=== PATIENT | female | born 1985 | race African-American/Black ===

== ENCOUNTER 2017-05-30 06:14 | Emergency (ER) | payer SELFPAY ==
[2017-05-30] MEDS ORDERED: methylPREDNISolone Sod Succ/PF 125 MG/2 ML VIAL ONE (06:41)
[2017-05-30 07:14] LABS: Hematocrit 42.1 % (36.0-47.0); Mean Platelet Volume 8.8 fL (7.4-10.4); White Blood Cell (WBC) Count 5.4 thou/uL (4.8-10.8)
[2017-05-30 07:32] LABS: ALT (SGPT) 16 U/L (8-55); AST (SGOT) 21 U/L (5-34); Alkaline Phosphatase 81 U/L (40-150); Anion Gap 9 mmol/L (10-20); BUN (Urea Nitrogen) 9 mg/dL (7.0-18.7); Bilirubin, Total 0.2 mg/dL (0.2-1.2); Calc. Creatinine Clearance 0 mL/min (70-130); Calcium 8.4 mg/dL (7.8-10.44); Carbon Dioxide 24 mmol/L (22-29); Chloride 108 mmol/L (98-107); Estimated GFR-MDRD 78; Globulin 2.8 g/dL (2.4-3.5); Protein, Total 6.3 g/dL (6.0-8.3)
[2017-05-30 07:46] LABS: Band 3 % (5-11); Neutrophil 20 % (42-75); Reactive Lymphocytes 5 % (0-10)
--- NOTE | 2017-05-30 08:26 | RAD ---
UPRIGHT PORTABLE CHEST ONE VIEW: HISTORY: A 31-year-old female with dyspnea which began yesterday. Prior history of asthma. FINDINGS: Monitor leads overlie the chest. Heart size is within normal limits. The lungs are clear. IMPRESSION: No acute intrathoracic disease. POS: [facility]
[2017-05-30 08:55] LABS: Bilirubin Negative (Negative); Blood, Urine Negative (Negative); Glucose, Urine (Dipstick) Negative (Negative); Ketone, Urine Negative (Negative); Nitrite Negative (Negative); Protein, Urine (Dipstick) Negative (Neg-Trace); Urobilinogen 0.2 mg/dL (0.2-1.0)
--- NOTE | 2017-06-03 15:20 | EKG ---
Test Reason : ASTHMA Blood Pressure : / mmHG Vent. Rate : 073 BPM Atrial Rate : 073 BPM P-R Int : 154 ms QRS Dur : 078 ms QT Int : 392 ms P-R-T Axes : 039 008 004 degrees QTc Int : 431 ms Normal sinus rhythm No STEMI Normal ECG Confirmed by ROCIO MALLOY M.D. ([id number]), photography editor MARIBELL JARA ([id number] on 06/03/2017 3:19:47 PM Referred By: Confirmed By:ROCIO MALLOY M.D.
== END 2017-05-30 08:55 | disposition home or self-care (01) ==
LOC: ERS 06:14
DX: J04.0 Acute laryngitis (principal); E66.9 Obesity, unspecified; F31.9 Bipolar disorder, unspecified; F17.210 Nicotine dependence, cigarettes, uncomplicated
CPT/HCPCS: 71010; 80053; 81003; 85025; 93005; 94640; 94760; 96361; 96374; J2930; J7620

== ENCOUNTER 2017-06-25 23:18 | Emergency (ER) | payer SELFPAY ==
[2017-06-26] MEDS ORDERED: Dexamethasone 4 mg/ml Vial ONE (00:50)
== END 2017-06-26 00:59 | disposition home or self-care (01) ==
LOC: ERS 23:18
DX: B34.9 Viral infection, unspecified (principal); J44.9 Chronic obstructive pulmonary disease, unspecified; F31.9 Bipolar disorder, unspecified; E66.9 Obesity, unspecified; F17.210 Nicotine dependence, cigarettes, uncomplicated
CPT/HCPCS: 87081; 87430; 99283; J1100

== ENCOUNTER 2017-07-19 13:59 | Emergency (ER) | payer SELFPAY ==
[2017-07-19 15:08] LABS: Bilirubin Negative (Negative); Blood, Urine Negative (Negative); Glucose, Urine (Dipstick) Negative (Negative); Ketone, Urine Negative (Negative); Nitrite Negative (Negative); Protein, Urine (Dipstick) Negative (Neg-Trace); Urobilinogen 0.2 mg/dL (0.2-1.0)
[2017-07-19 15:15] LABS: Bacteria/HPF Rare-Few HPF (None Seen); Hyaline Casts/LPF 4-6 HYALINE CAST LPF (0-3 Hyaline); RBC/HPF 0-3 HPF (0-3); WBC/HPF 21-50 HPF (0-3)
[2017-07-19 15:26] LABS: Yeast-All Forms None Seen HPF (None Seen)
[2017-07-19 15:39] LABS: #Eosinphils 0.1 thou/uL (0.0-0.7); #Lymphocytes 1.4 thou/uL (1.20-3.40); #Monocytes 0.4 thou/uL (0.11-0.59); #Neutrophils 3.8 thou/uL (1.40-6.50); %Basophils 0.7 % (0.0-1.0); %Eosinophils 2.5 % (0.0-10.0); %Lymphocytes 24.7 % (21.0-51.0); %Monocytes 6.4 % (0.0-10.0); Hematocrit 43.2 % (36.0-47.0); Mean Platelet Volume 9.3 fL (7.4-10.4); Red Blood Cell (RBC) Count 4.63 mill/uL (4.20-5.40); White Blood Cell (WBC) Count 5.8 thou/uL (4.8-10.8)
[2017-07-19 16:01] LABS: ALT (SGPT) 12 U/L (8-55); AST (SGOT) 21 U/L (5-34); Alkaline Phosphatase 102 U/L (40-150); Anion Gap 12 mmol/L (10-20); BUN (Urea Nitrogen) 7 mg/dL (7.0-18.7); Bilirubin, Total 0.5 mg/dL (0.2-1.2); Calc. Creatinine Clearance 0 mL/min (70-130); Calcium 9.4 mg/dL (7.8-10.44); Carbon Dioxide 21 mmol/L (22-29); Chloride 105 mmol/L (98-107); Estimated GFR-MDRD Greater than 90; Globulin 3.3 g/dL (2.4-3.5)
[2017-07-19] MEDS ORDERED: Ondansetron HCl/PF 4 MG/2 ML Vial ONE (17:56)
== END 2017-07-19 19:17 | disposition home or self-care (01) ==
LOC: ERS 13:59
DX: K52.9 Noninfective gastroenteritis and colitis, unspecified (principal); J45.909 Unspecified asthma, uncomplicated; F31.9 Bipolar disorder, unspecified; F17.210 Nicotine dependence, cigarettes, uncomplicated; E66.9 Obesity, unspecified
CPT/HCPCS: 36415; 80053; 81003; 81015; 81025; 85025; 87086; 96361; 96374; 99406; J2405

== ENCOUNTER 2017-09-07 14:18 | Emergency (ER) | payer SELFPAY ==
[2017-09-07] MEDS ORDERED: Dexamethasone 10 MG/ML VIAL ONE (15:24)
== END 2017-09-07 15:55 | disposition home or self-care (01) ==
LOC: ERS 14:18
DX: J04.0 Acute laryngitis (principal); J45.909 Unspecified asthma, uncomplicated; E66.9 Obesity, unspecified; F31.9 Bipolar disorder, unspecified; Z71.6 Tobacco abuse counseling; F17.210 Nicotine dependence, cigarettes, uncomplicated; F41.9 Anxiety disorder, unspecified; Z79.899 Other long term (current) drug therapy
CPT/HCPCS: 87081; 87430; 96372; 99406; J1100

== ENCOUNTER 2017-10-01 20:53 | Emergency (ER) | payer SELFPAY ==
[2017-10-01] MEDS ORDERED: Ibuprofen 800 MG TAB ONE (22:14)
== END 2017-10-01 22:15 | disposition home or self-care (01) ==
LOC: ERS 20:53
DX: J45.909 Unspecified asthma, uncomplicated (principal); E66.9 Obesity, unspecified; F41.9 Anxiety disorder, unspecified; F31.9 Bipolar disorder, unspecified; F17.210 Nicotine dependence, cigarettes, uncomplicated; J42 Unspecified chronic bronchitis
CPT/HCPCS: 94640; 99406; J7620

== ENCOUNTER 2017-12-21 19:34 | Emergency (ER) | payer SELFPAY ==
[2017-12-21 20:10] LABS: Bilirubin Negative (Negative); Blood, Urine Large (Negative); Clarity CLEAR (Clear); Glucose, Urine (Dipstick) Negative (Negative); Leukocyte Trace (Negative); Nitrite Negative (Negative); Protein, Urine (Dipstick) Negative (Neg-Trace); Specific Gravity, Urine 1.028 (1.002-1.036); Urobilinogen 0.2 mg/dL (0.2-1.0); pH, Urine 5.5 (5.0-9.0)
[2017-12-21 20:11] LABS: Bacteria/HPF None Seen HPF (None Seen); Hyaline Casts/LPF 0-3 HYALINE CAST LPF (0-3 Hyaline); Pathc Cast-AUWi Flag 0.43 (0-2.49); Squamous Epithelial 0-3 HPF (0-3)
[2017-12-21 20:12] LABS: Pregnancy Test - Urine (BHCG) Negative (Negative); Pregu Control Background? CLEAR/WHITE (CLR/WHITE); Pregu Control Bar Appear? YES (CONTROL BAR); Specific Gravity 1.028 (1.002-1.036)
[2017-12-21] MEDS ORDERED: Ketorolac Tromethamine 60 MG/2 ML VIAL ONE (20:28)
== END 2017-12-21 20:45 | disposition home or self-care (01) ==
LOC: ERS 19:34
DX: N39.0 Urinary tract infection, site not specified (principal); R51 Headache; J45.909 Unspecified asthma, uncomplicated; E66.9 Obesity, unspecified; F41.9 Anxiety disorder, unspecified; F17.210 Nicotine dependence, cigarettes, uncomplicated; Z79.899 Other long term (current) drug therapy
CPT/HCPCS: 81003; 81015; 81025; 96372; J1885

== ENCOUNTER 2018-01-05 18:49 | Emergency (ER) | payer SELFPAY ==
[2018-01-05 19:36] LABS: Hemoglobin 13.1 g/dL (12.0-16.0); Mean Corpuscular HGB CONC 32.6 g/dL (32.0-36.0); Mean Corpuscular Hemoglobin 29.6 pg (27.0-31.0); Mean Corpuscular Volume 90.9 fl (81.0-99.0); Mean Platelet Volume 9.4 fL (7.4-10.4); Platelet Count 191 thou/uL (130-400); RBC Distribution Width 12.3 % (11.5-14.5); Red Blood Cell (RBC) Count 4.41 mill/uL (4.20-5.40); White Blood Cell (WBC) Count 5.6 thou/uL (4.8-10.8)
[2018-01-05 19:42] LABS: BHCG - Serum Negative (NEGATIVE); Pregs Control Background? CLEAR/WHITE (CLR/WHITE); Pregs Control Bar Appear? YES (CONTROL BAR)
[2018-01-05 19:53] LABS: ALT (SGPT) 10 U/L (8-55); AST (SGOT) 16 U/L (5-34); Albumin 3.1 g/dL (3.5-5.0); Alkaline Phosphatase 82 U/L (40-150); Anion Gap 10 mmol/L (10-20); BUN (Urea Nitrogen) 8 mg/dL (7.0-18.7); Bilirubin, Total 0.2 mg/dL (0.2-1.2); Calc. Creatinine Clearance 0 mL/min (70-130); Calcium 8.1 mg/dL (7.8-10.44); Carbon Dioxide 24 mmol/L (22-29); Chloride 109 mmol/L (98-107); Estimated GFR-MDRD 87; Globulin 2.2 g/dL (2.4-3.5); Glucose 122 mg/dL (70-105); Lipase 50 U/L (8-78); Potassium 3.7 mmol/L (3.5-5.1); Protein, Total 5.3 g/dL (6.0-8.3); Sodium 139 mmol/L (136-145)
[2018-01-05 19:55] LABS: Band 1 % (5-11); Eosinophils 1 % (0-10); Lymphocytes 21 % (21-51); MDiff Complete? YES; Monocytes 10 % (0-10); Neutrophil 67 % (42-75); PLT Morphology Comment Appears Adequate
== END 2018-01-05 20:53 | disposition home or self-care (01) ==
LOC: ERS 18:49
DX: R11.2 Nausea with vomiting, unspecified (principal); R19.7 Diarrhea, unspecified; J45.909 Unspecified asthma, uncomplicated; E66.9 Obesity, unspecified; F41.9 Anxiety disorder, unspecified; F31.9 Bipolar disorder, unspecified; Z71.6 Tobacco abuse counseling; F17.210 Nicotine dependence, cigarettes, uncomplicated; Z79.899 Other long term (current) drug therapy
CPT/HCPCS: 36415; 80053; 83690; 84703; 85025; 99406

== ENCOUNTER 2018-01-12 00:47 | Emergency (ER) | payer SELFPAY ==
[2018-01-12] MEDS ORDERED: Ondansetron ODT 8 MG TAB ONE (01:13)
[2018-01-12 01:38] LABS: Bilirubin Negative (Negative); Blood, Urine Negative (Negative); Clarity CLEAR (Clear); Glucose, Urine (Dipstick) Negative (Negative); Leukocyte Negative (Negative); Nitrite Negative (Negative); Protein, Urine (Dipstick) Negative (Neg-Trace); Specific Gravity, Urine 1.028 (1.002-1.036); Urobilinogen 0.2 mg/dL (0.2-1.0)
[2018-01-12 01:39] LABS: Pregnancy Test - Urine (BHCG) Negative (Negative); Pregu Control Background? CLEAR/WHITE (CLR/WHITE); Pregu Control Bar Appear? YES (CONTROL BAR); Specific Gravity 1.028 (1.002-1.036)
== END 2018-01-12 01:52 | disposition home or self-care (01) ==
LOC: ERS 00:47
DX: R10.9 Unspecified abdominal pain (principal); R11.0 Nausea; F41.9 Anxiety disorder, unspecified; F17.210 Nicotine dependence, cigarettes, uncomplicated; F31.9 Bipolar disorder, unspecified; R33.9 Retention of urine, unspecified; Z79.899 Other long term (current) drug therapy
CPT/HCPCS: 81003; 81025; 96372

== ENCOUNTER 2018-04-24 10:40 | Emergency (ER) | payer SELFPAY ==
[2018-04-24] MEDS ORDERED: methylPREDNISolone Sod Succ/PF 125 MG/2 ML VIAL ONE (11:02)
--- NOTE | 2018-04-24 11:37 | RAD ---
AP VIEW CHEST: Date: 04/24/18 INDICATION: Asthma. COMPARISON: Prior study dated 05/30/17. FINDINGS: No focal consolidation, pleural effusion, or pneumothorax is evident. Heart size is accentuated by th e exam technique. No acute osseous abnormality is evident. IMPRESSION: No acute cardiopulmonary abnormality. POS: [facility]
[2018-04-24] MEDS ORDERED: Albuterol Sulfate 2.5 mg/3 ml Neb ONE (12:23)
[2018-04-24] MEDS ORDERED: Albuterol Sulfate 2.5 mg/0.5 ml Neb ONE (12:23)
== END 2018-04-24 13:59 | disposition home or self-care (01) ==
LOC: ERS 10:40
DX: J45.901 Unspecified asthma with (acute) exacerbation (principal); F41.9 Anxiety disorder, unspecified; F31.9 Bipolar disorder, unspecified; F17.210 Nicotine dependence, cigarettes, uncomplicated; J42 Unspecified chronic bronchitis; Z79.899 Other long term (current) drug therapy; Z71.6 Tobacco abuse counseling
CPT/HCPCS: 71045; 94644; 96361; 96374; 99406; J2930; J7611

== ENCOUNTER 2018-04-25 22:23 | Emergency (ER) | payer SELFPAY ==
[2018-04-25] MEDS ORDERED: Acetaminophen 325 MG TAB ONE (22:55)
[2018-04-25] MEDS ORDERED: diphenhydrAMINE 25 MG CAP ONE (22:55)
[2018-04-25] MEDS ORDERED: Metoclopramide HCl 10 MG/2 ML VIAL ONE (22:55)
[2018-04-26] MEDS ORDERED: Magnesium 2 GM/NS 0.9% 100 ML 2 GM in Premix Bag 1 BAG IVPB SCH (00:15)
== END 2018-04-26 01:37 | disposition home or self-care (01) ==
LOC: ERS 22:23
DX: R51 Headache (principal); J45.909 Unspecified asthma, uncomplicated; E66.9 Obesity, unspecified; F41.9 Anxiety disorder, unspecified; F17.210 Nicotine dependence, cigarettes, uncomplicated; Z79.899 Other long term (current) drug therapy
CPT/HCPCS: 96361; 96365; 96367; J2765; J3475

== ENCOUNTER 2018-09-23 18:08 | Emergency (ER) | payer SELFPAY | END 2018-09-23 18:48 | disposition home or self-care (01) | LOC: ERS 18:08 | DX: M25.552 Pain in left hip (principal); J45.909 Unspecified asthma, uncomplicated; E66.9 Obesity, unspecified; F41.9 Anxiety disorder, unspecified; F31.9 Bipolar disorder, unspecified; F17.210 Nicotine dependence, cigarettes, uncomplicated; X50.9XXA Other and unspecified overexertion or strenuous movements or postures, initial encounter | CPT/HCPCS: 99281 ==

== ENCOUNTER 2018-12-14 15:31 | Emergency (ER) | payer SELFPAY ==
[2018-12-14] MEDS ORDERED: Ibuprofen 200 MG TAB ONE (16:07)
[2018-12-14] MEDS ORDERED: Bicillin LA 1.2 MILLION UNITS/2 ML SYRINGE ONE (16:07)
[2018-12-14] MEDS ORDERED: Ibuprofen 100 MG/5 ML UDCUP ONE (16:10)
[2018-12-14] MEDS ORDERED: Dexamethasone 10 MG/ML VIAL ONE (16:10)
== END 2018-12-14 16:24 | disposition home or self-care (01) ==
LOC: ERS 15:31
DX: J02.0 Streptococcal pharyngitis (principal); F17.210 Nicotine dependence, cigarettes, uncomplicated; E66.9 Obesity, unspecified; J45.909 Unspecified asthma, uncomplicated; F31.9 Bipolar disorder, unspecified; F41.9 Anxiety disorder, unspecified
CPT/HCPCS: 87430; 96372; J0561; J1100

== ENCOUNTER 2019-04-21 13:56 | Emergency (ER) | payer SELFPAY ==
--- NOTE | 2019-04-21 14:28 | RAD ---
EXAM: XR Chest 1 View Portable PROVIDED CLINICAL HISTORY: Cough COMPARISON: 04/24/2018 FINDINGS: Evaluation is limited by patient body habitus. Cardiac and mediastinal silhouette is within normal li mits. There is a linear attenuation difference in a horizontal manner overlying the right midlung zone laterally, which could reflect an air-fluid level but is incompletely characterized on the basis of this study. The lungs appear otherwise clear. There is no evidence for pleural fluid or pneumothorax. IMPRESSION: Abnormality of the right midlung zone as described. Correlation with PA and lateral views of the ches t recommended.
--- NOTE | 2019-04-21 14:53 | RAD ---
EXAM: XR Chest Pa Lat STANDARD PROVIDED CLINICAL HISTORY: Shortness of breath and fever COMPARISON: None FINDINGS: Cardiac and mediastinal silhouette is within normal limits. There is airspace disease involving the a nterior segment of the right upper lobe which is delimited by the minor fissure producing the chest radiographic appearance described on the portable chest previously. The lungs appear otherwise clear. No pleural fluid or pneumothorax apparent. IMPRESSION: Right upper lung lobe airspace disease, compatible with pneumonia in the appropriate clinical context .
== END 2019-04-21 15:10 | disposition home or self-care (01) ==
LOC: ERS 13:56
DX: J18.1 Lobar pneumonia, unspecified organism (principal); J45.909 Unspecified asthma, uncomplicated; E66.9 Obesity, unspecified; F41.9 Anxiety disorder, unspecified; F31.9 Bipolar disorder, unspecified; F17.210 Nicotine dependence, cigarettes, uncomplicated; Z71.6 Tobacco abuse counseling
CPT/HCPCS: 71045; 71046; 87081; 87430; 94640; 99406; J7620

== ENCOUNTER 2019-09-09 04:06 | Emergency (ER) | payer SELFPAY | END 2019-09-09 04:26 | disposition home or self-care (01) | LOC: ERS 04:06 | DX: R19.7 Diarrhea, unspecified (principal); R11.2 Nausea with vomiting, unspecified; R10.9 Unspecified abdominal pain; J45.909 Unspecified asthma, uncomplicated; E66.9 Obesity, unspecified; F17.210 Nicotine dependence, cigarettes, uncomplicated; F31.9 Bipolar disorder, unspecified; F41.9 Anxiety disorder, unspecified; Z79.51 Long term (current) use of inhaled steroids | CPT/HCPCS: 99283 ==

== ENCOUNTER 2020-02-11 15:23 | Emergency (ER) | payer SELFPAY ==
[2020-02-11] MEDS ORDERED: Ibuprofen 800 MG TAB ONE (18:51)
== END 2020-02-11 18:54 | disposition home or self-care (01) ==
LOC: ERS 15:23
DX: M54.5 Low back pain (principal); F41.9 Anxiety disorder, unspecified; F17.210 Nicotine dependence, cigarettes, uncomplicated; J45.909 Unspecified asthma, uncomplicated
CPT/HCPCS: 99283

== ENCOUNTER 2020-04-24 11:46 | Emergency (ER) | payer SELFPAY ==
[2020-04-24] MEDS ORDERED: Acetaminophen 325 MG TAB ONE (14:24)
[2020-04-24] MEDS ORDERED: Ibuprofen 800 MG TAB ONE (14:24)
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
== END 2020-04-24 15:15 | disposition home or self-care (01) ==
LOC: ERS 11:46
DX: M54.5 Low back pain (principal); J45.909 Unspecified asthma, uncomplicated; E66.9 Obesity, unspecified; F31.9 Bipolar disorder, unspecified; F41.9 Anxiety disorder, unspecified; F17.210 Nicotine dependence, cigarettes, uncomplicated; V89.2XXA Person injured in unspecified motor-vehicle accident, traffic, initial encounter
CPT/HCPCS: 72100

== ENCOUNTER 2020-08-23 03:30 | Emergency (ER) | payer SELFPAY ==
[2020-08-23] MEDS ORDERED: Metoclopramide HCl 10 MG/2 ML VIAL ONE (03:47)
[2020-08-23] MEDS ORDERED: Magnesium 2 GM/50 ML BAG (IN WATER) ONE (03:47)
[2020-08-23] MEDS ORDERED: diphenhydrAMINE 50 MG/ML VIAL ONE (03:47)
[2020-08-23] MEDS ORDERED: Ketorolac Tromethamine 30 MG/ML VIAL ONE (04:46)
== END 2020-08-23 05:00 | disposition home or self-care (01) ==
LOC: ERS 03:30
DX: R51.9 Headache, unspecified (principal); R11.0 Nausea; H53.149 Visual discomfort, unspecified; E66.9 Obesity, unspecified; J45.909 Unspecified asthma, uncomplicated; F17.210 Nicotine dependence, cigarettes, uncomplicated
CPT/HCPCS: 94760; 96365; 96368; 96375; J1200; J1885; J2765; J3475

== ENCOUNTER 2021-08-16 19:44 | Emergency (ER) | payer SELFPAY ==
[2021-08-16] MEDS ORDERED: Acetaminophen 500 MG TAB ONE (20:41)
[2021-08-17 13:20] LABS: SARS-CoV-2 PCR by NAA DETECTED (NotDetected)
== END 2021-08-16 20:49 | disposition home or self-care (01) ==
LOC: ERS 19:44
DX: U07.1 COVID-19 (principal); J45.909 Unspecified asthma, uncomplicated; E66.9 Obesity, unspecified; F17.210 Nicotine dependence, cigarettes, uncomplicated
CPT/HCPCS: 99284; U0003; U0005

== ENCOUNTER 2022-07-27 09:32 | Emergency (ER) | payer OTHER, SELFPAY ==
[2022-07-27] MEDS ORDERED: predniSONE 20 MG TAB ONE (10:08)
[2022-07-27] MEDS ORDERED: Albuterol Sulfate 2.5 mg/0.5 ml Neb ONE (10:39)
== END 2022-07-27 11:28 | disposition home or self-care (01) ==
LOC: ERS 09:32
DX: J45.901 Unspecified asthma with (acute) exacerbation (principal); F17.210 Nicotine dependence, cigarettes, uncomplicated; Z79.899 Other long term (current) drug therapy
CPT/HCPCS: 71045; 94640; 99284; J7512; J7611; J7620

== ENCOUNTER 2022-08-30 20:14 | Inpatient (IN) | payer SELFPAY ==
[2022-08-30] MEDS ORDERED: Acetaminophen 500 MG TAB ONE (20:30)
[2022-08-30] MEDS ORDERED: Ipratropium/Albuterol 3 ML NEB ONE (20:54)
[2022-08-30] MEDS ORDERED: methylPREDNISolone Sod Succ/PF 125 MG/2 ML VIAL ONE (20:54)
[2022-08-30 21:08] LABS: Hemoglobin 13.6 g/dL (12.0-16.0); Mean Corpuscular HGB CONC 33.5 g/dL (32.0-36.0); Mean Corpuscular Hemoglobin 31.3 pg (27.0-31.0); Mean Corpuscular Volume 93.5 fl (78.0-98.0); Mean Platelet Volume 10.1 fL (7.4-10.4); Platelet Count 178 10x3/uL (130-400); RBC Distribution Width 12.3 % (11.5-14.5); Red Blood Cell (RBC) Count 4.32 mill/uL (4.20-5.40); White Blood Cell (WBC) Count 8.6 10x3/uL (4.8-10.8)
[2022-08-30 21:14] LABS: BHCG - Serum Negative (NEGATIVE); Pregs Control Background? CLEAR/WHITE (CLR/WHITE); Pregs Control Bar Appear? YES (CONTROL BAR)
[2022-08-30 21:28] LABS: ALT (SGPT) 11 U/L (8-55); AST (SGOT) 15 U/L (5-34); Albumin 3.5 g/dL (3.5-5.0); Alkaline Phosphatase 72 U/L (40-110); Anion Gap 11 mmol/L (10-20); BUN (Urea Nitrogen) 6 mg/dL (7.0-18.7); Bilirubin, Total 0.5 mg/dL (0.2-1.2); Calc. Creatinine Clearance 0 mL/min (70-130); Calcium 8.6 mg/dL (7.8-10.44); Carbon Dioxide 22 mmol/L (22-29); Chloride 107 mmol/L (98-107); Estimated GFR 80; Globulin 2.5 g/dL (2.4-3.5); Glucose 111 mg/dL (70-105); Potassium 4.3 mmol/L (3.5-5.1); Sodium 136 mmol/L (136-145)
[2022-08-30 21:34] LABS: SARS-CoV-2 NAA Rapid Test Not Detected (NotDetected)
[2022-08-30 21:42] LABS: Band 5 % (5-11); Eosinophils 1 % (0-10); Lymphocytes 4 % (21-51); MDiff Complete? YES; Monocytes 3 % (0-10); Neutrophil 87 % (42-75); Platelet Morphology Comment Appears Adequate; RBC Morphology Normal; Vacuoles SLIGHT
[2022-08-30] MEDS ORDERED: cefTRIAXone\\ROCEPHIN 1 GM VIAL ONE (22:55)
[2022-08-31] MEDS ORDERED: Ondansetron ODT 4 MG TAB PO PRN (00:29)
[2022-08-31] MEDS ORDERED: Ondansetron PF 4 MG/2 ML Vial IVP PRN (00:29)
[2022-08-31] MEDS ORDERED: Acetaminophen 650 MG Suppository PR PRN (00:29)
[2022-08-31] MEDS ORDERED: Azithromycin 500 MG VIAL ONE (00:32)
[2022-08-31 01:32] VITALS: BMI 50.6
[2022-08-31 02:22] LABS: Bacteria/HPF None Seen HPF (None Seen); Bilirubin Negative (Negative); Blood, Urine 1+ (Negative); Clarity Clear (Clear); Glucose, Urine (Dipstick) Normal (Negative); Ketone, Urine Trace mg/dL (Negative); Leukocyte Negative Leu/uL (Negative); Nitrite Negative (Negative); Protein, Urine (Dipstick) Negative (Neg-Trace); RBC/HPF 0-3 HPF (0-3); Specific Gravity, Urine 1.012 (1.002-1.036); Urobilinogen Normal mg/dL (Less than 2); WBC/HPF 0-3 HPF (0-3)
[2022-08-31] MEDS ORDERED: Ipratropium/Albuterol 3 ML NEB NEB PRN (03:41)
[2022-08-31] MEDS ORDERED: cefTRIAXone\\ROCEPHIN 1 GM in Sodium Chloride 0.9% 100 ML IVPB SCH ×2 (04:00→21:00)
[2022-08-31 06:00] LABS: #Lymphocytes 0.7 thou/uL (1.20-3.40); #Monocytes 0.1 thou/uL (0.11-0.59); #Neutrophils 7.7 thou/uL (1.40-6.50); %Basophils 0.6 % (0.0-1.0); %Eosinophils 0.2 % (0.0-10.0); %Lymphocytes 7.5 % (21.0-51.0); %Monocytes 1.5 % (0.0-10.0); %Neutrophils 90.2 % (42.0-75.0); Hemoglobin 13.5 g/dL (12.0-16.0); Mean Corpuscular HGB CONC 34.5 g/dL (32.0-36.0); Mean Corpuscular Hemoglobin 32.6 pg (27.0-31.0); Mean Corpuscular Volume 94.4 fl (78.0-98.0); Platelet Count 182 10x3/uL (130-400); RBC Distribution Width 12.4 % (11.5-14.5); Red Blood Cell (RBC) Count 4.15 mill/uL (4.20-5.40); White Blood Cell (WBC) Count 8.6 10x3/uL (4.8-10.8)
[2022-08-31 06:13] LABS: Anion Gap 12 mmol/L (10-20); BUN (Urea Nitrogen) 6 mg/dL (7.0-18.7); Calc. Creatinine Clearance 215 mL/min (70-130); Calcium 8.6 mg/dL (7.8-10.44); Carbon Dioxide 18 mmol/L (22-29); Chloride 111 mmol/L (98-107); Estimated GFR 96; Glucose 129 mg/dL (70-105); Potassium 3.8 mmol/L (3.5-5.1); Sodium 137 mmol/L (136-145)
[2022-08-31] MEDS: Ipratropium/Albuterol 3 ML NEB NEB SCH ×5 (06:15→22:10)
[2022-08-31 07:00] LABS: Troponin I Less than 0.010 ng/mL (< 0.028)
[2022-08-31] MEDS: methylPREDNISolone Sod Succ 40 MG VIAL IVP SCH (08:37)
[2022-08-31 12:36] LABS: Phosphorus 1.8 mg/dL (2.3-4.7)
[2022-08-31] MEDS: Acetaminophen 325 MG TAB PO PRN ×2 (16:18→21:58)
[2022-08-31] MEDS ORDERED: Azithromycin 500 MG in Sodium Chloride 0.9% 250 ML 250 ML IVPB SCH (21:00)
[2022-09-01] MEDS: Ipratropium/Albuterol 3 ML NEB NEB SCH ×3 (02:02→11:01)
[2022-09-01] MEDS: Benzonatate 100 MG CAP PO PRN ×2 (03:23→08:23)
[2022-09-01 05:01] LABS: #Lymphocytes 2.1 thou/uL (1.20-3.40); #Monocytes 0.8 thou/uL (0.11-0.59); #Neutrophils 7.3 thou/uL (1.40-6.50); %Basophils 0.5 % (0.0-1.0); %Eosinophils 0.1 % (0.0-10.0); %Lymphocytes 20.9 % (21.0-51.0); %Monocytes 7.9 % (0.0-10.0); %Neutrophils 70.7 % (42.0-75.0); Hemoglobin 12.1 g/dL (12.0-16.0); Mean Corpuscular HGB CONC 32.4 g/dL (32.0-36.0); Mean Corpuscular Hemoglobin 30.7 pg (27.0-31.0); Mean Corpuscular Volume 94.7 fl (78.0-98.0); Mean Platelet Volume 9.9 fL (7.4-10.4); Platelet Count 177 10x3/uL (130-400); RBC Distribution Width 12.4 % (11.5-14.5); Red Blood Cell (RBC) Count 3.95 mill/uL (4.20-5.40); White Blood Cell (WBC) Count 10.3 10x3/uL (4.8-10.8)
[2022-09-01 05:20] LABS: Anion Gap 13 mmol/L (10-20); BUN (Urea Nitrogen) 11 mg/dL (7.0-18.7); Calc. Creatinine Clearance 201 mL/min (70-130); Calcium 8.3 mg/dL (7.8-10.44); Carbon Dioxide 21 mmol/L (22-29); Chloride 109 mmol/L (98-107); Estimated GFR 88; Glucose 108 mg/dL (70-105); Potassium 3.7 mmol/L (3.5-5.1); Sodium 139 mmol/L (136-145)
[2022-09-01] MEDS: methylPREDNISolone Sod Succ 40 MG VIAL IVP SCH (08:18)
[2022-09-01] MEDS ORDERED: Electrolyte Replacement Protocol 1 EACH FS SCH (08:45)
[2022-09-01] MEDS ORDERED: methylPREDNISolone Sod Succ 40 MG VIAL IVP SCH (09:00)
[2022-09-01] MEDS: Magnesium 2 GM/50 ML(in water) 2 GM in Premix Bag 1 BAG IVPB SCH ×2 (10:49→12:16)
[2022-09-01] MEDS ORDERED: PHOS-NAK 1 PKT PACK PO SCH (11:00)
[2022-09-01 11:55] VITALS: BP 137/81; TEMP 98.1
== END 2022-09-01 13:44 | disposition home or self-care (01) | DRG 202 ==
LOC: ERS 20:14 → 2SW 23:43 → OBSVTOIN 08-31 12:32
PROVIDERS: ADMIT Internal Medicine; ATTEND Internal Medicine
DX: J45.901 Unspecified asthma with (acute) exacerbation (principal); E87.20 Acidosis, unspecified; Z68.43 Body mass index [BMI] 50.0-59.9, adult; Z20.822 Contact with and (suspected) exposure to COVID-19; E66.01 Morbid (severe) obesity due to excess calories; J02.9 Acute pharyngitis, unspecified; J20.9 Acute bronchitis, unspecified; E83.39 Other disorders of phosphorus metabolism; E87.6 Hypokalemia; F17.210 Nicotine dependence, cigarettes, uncomplicated; Z71.6 Tobacco abuse counseling; Z91.041 Radiographic dye allergy status; Z79.899 Other long term (current) drug therapy; Z79.52 Long term (current) use of systemic steroids
CPT/HCPCS: 36415; 71045; 80048; 80053; 81001; 83605; 83735; 83880; 84100; 84145; 84484; 84703; 85025; 87040; 87081; 87430; 93005; 94640; 94760; 96361; 96365; 96372; 96375; 96376; G0378; J0456; J0696; J1650; J2920; J2930; J3475; J3490; J7050; J7620

== ENCOUNTER 2022-10-25 08:30 | Emergency (ER) | payer SELFPAY ==
[2022-10-25 14:32] LABS: Chlam.trachomatis by PCR,Urine Not Detected (NotDetected); GC N.gonorrhoeae PCR,UrineVOID Not Detected (NotDetected)
== END 2022-10-25 10:41 | disposition home or self-care (01) ==
LOC: ERS 08:30
DX: Z00.00 Encounter for general adult medical examination without abnormal findings (principal)
CPT/HCPCS: 87491; 87591; 87661; 99283

== ENCOUNTER 2022-11-04 19:26 | Emergency (ER) | payer SELFPAY ==
[2022-11-04] MEDS ORDERED: Ondansetron ODT 8 MG TAB ONE (19:49)
[2022-11-04] MEDS ORDERED: Famotidine 20 MG TAB ONE (20:10)
[2022-11-04] MEDS ORDERED: Dicyclomine 20 MG TAB ONE (20:10)
== END 2022-11-04 21:37 | disposition home or self-care (01) ==
LOC: ERS 19:26
DX: R11.2 Nausea with vomiting, unspecified (principal); R19.7 Diarrhea, unspecified; F17.210 Nicotine dependence, cigarettes, uncomplicated
CPT/HCPCS: 99283; Q0162

== ENCOUNTER 2024-02-18 15:07 | Emergency (ER) | payer SELFPAY ==
[2024-02-18 16:02] LABS: #Basophils 0.03 10x3/uL (0.0-0.2); %Basophils 0.5 % (0.0-1.0); %Eosinophils 5.5 % (0.0-10.0); %Lymphocytes 35.2 % (21.0-51.0); %Monocytes 7.6 % (0.0-10.0); Hematocrit 38.5 % (36.0-47.0); Hemoglobin 12.5 g/dL (12.0-16.0); Mean Corpuscular HGB CONC 32.5 g/dL (32.0-36.0); Mean Corpuscular Hemoglobin 29.1 pg (27.0-31.0); Mean Corpuscular Volume 89.5 fL (78.0-98.0); Platelet Count 196 10x3/uL (130-400); RBC Distribution Width 13.9 % (11.5-14.5)
[2024-02-18 16:12] LABS: BHCG - Serum Negative (NEGATIVE); Pregs Control Background? CLEAR/WHITE (CLR/WHITE); Pregs Control Bar Appear? YES (CONTROL BAR)
[2024-02-18 16:16] LABS: ALT (SGPT) 13 U/L (8-55); AST (SGOT) 16 U/L (5-34); Alkaline Phosphatase 74 U/L (40-110); Anion Gap 7 mmol/L (10-20); BUN (Urea Nitrogen) 11 mg/dL (7.0-18.7); Bilirubin, Total 0.4 mg/dL (0.2-1.2); Calc. Creatinine Clearance 0 mL/min (70-130); Calcium 8.3 mg/dL (7.8-10.44); Carbon Dioxide 23 mmol/L (22-29); Chloride 110 mmol/L (98-107); Estimated GFR 87; Globulin 2.7 g/dL (2.4-3.5); Glucose 87 mg/dL (70-105); Protein, Total 5.7 g/dL (6.0-8.3); Sodium 136 mmol/L (136-145)
[2024-02-18 16:22] LABS: Troponin I Less than 0.010 ng/mL (< 0.028)
[2024-02-18] MEDS ORDERED: Ipratropium/Albuterol 3 ML NEB ONE (16:46)
[2024-02-18] MEDS ORDERED: methylPREDNISolone Sod Succ/PF 125 MG/2 ML VIAL ONE (16:46)
[2024-02-18] MEDS ORDERED: Azithromycin 250 MG TAB ONE (17:03)
[2024-02-18 18:02] LABS: Influenza A by NAA Not Detected (NotDetected); Influenza B by NAA Not Detected (NotDetected); SARS-CoV-2 NAA Rapid Test DETECTED (NotDetected)
[2024-02-18] MEDS ORDERED: Acetaminophen 500 MG TAB ONE (18:12)
== END 2024-02-18 18:08 | disposition home or self-care (01) ==
LOC: ERS 15:07
DX: U07.1 COVID-19 (principal); J45.909 Unspecified asthma, uncomplicated; F17.210 Nicotine dependence, cigarettes, uncomplicated
CPT/HCPCS: 36415; 71045; 80053; 84484; 84703; 85025; 93005; 96372; J2930; J7620

== ENCOUNTER 2024-04-20 07:08 | Emergency (ER) | payer SELFPAY ==
[2024-04-20] MEDS ORDERED: Ondansetron ODT 4 MG TAB ONE (08:12)
[2024-04-20 08:19] LABS: Hematocrit 40.7 % (36.0-47.0); Hemoglobin 12.8 g/dL (12.0-16.0); Mean Corpuscular HGB CONC 31.4 g/dL (32.0-36.0); Mean Corpuscular Hemoglobin 28.8 pg (27.0-31.0); Mean Corpuscular Volume 91.7 fL (78.0-98.0); Platelet Count 241 10x3/uL (130-400); RBC Distribution Width 13.8 % (11.5-14.5); Red Blood Cell (RBC) Count 4.44 mill/uL (4.20-5.40)
[2024-04-20 08:28] LABS: BHCG - Serum Negative (NEGATIVE); Pregs Control Background? CLEAR/WHITE (CLR/WHITE); Pregs Control Bar Appear? YES (CONTROL BAR)
[2024-04-20 08:35] LABS: ALT (SGPT) 12 U/L (8-55); AST (SGOT) 14 U/L (5-34); Alkaline Phosphatase 75 U/L (40-110); Anion Gap 10 mmol/L (10-20); BUN (Urea Nitrogen) 8 mg/dL (7.0-18.7); Bilirubin, Total 0.2 mg/dL (0.2-1.2); Calc. Creatinine Clearance 0 mL/min (70-130); Calcium 8.5 mg/dL (7.8-10.44); Carbon Dioxide 24 mmol/L (22-29); Chloride 111 mmol/L (98-107); Estimated GFR 81; Globulin 2.7 g/dL (2.4-3.5); Glucose 88 mg/dL (70-105); Lipase 49 U/L (8-78); Potassium 3.9 mmol/L (3.5-5.1); Protein, Total 5.7 g/dL (6.0-8.3); Sodium 141 mmol/L (136-145)
[2024-04-20 08:49] LABS: Band 1 % (5-11); Eosinophils 6 % (0-10); Large Platelets 8.7 % (0-5); Lymphocytes 53 % (21-51); Macrocytosis SLIGHT = 6-15 cells HPF (0-5); Monocytes 4 % (0-10); Neutrophil 35 % (42-75); Plasma Cells 1 % (0-0); Platelet Adequacy Comment Platelets Normal; Polychromasia SLIGHT = 2-3 cells HPF (0-2)
[2024-04-20 09:11] LABS: Bilirubin Negative (Negative); Blood, Urine Negative (Negative); CAUTI Indications for Culture Dysuria,urgency,freq; Clarity Turbid (Clear); Glucose, Urine (Dipstick) Normal (Negative); Ketone, Urine Negative (Negative); Leukocyte 500 Leu/uL (Negative); Nitrite Negative (Negative); Protein, Urine (Dipstick) 10 mg/dL (Neg-Trace); Specific Gravity, Urine 1.025 (1.002-1.036); Squamous Epithelial 21-50 HPF (0-3); Urobilinogen Normal mg/dL (Less than 2); WBC/HPF Greater than 50 HPF (0-3); pH, Urine 5.5 (5.0-9.0)
[2024-04-20 09:14] LABS: Bacteria/HPF 1+ HPF (None Seen)
[2024-04-20 09:16] LABS: Urine Culture Reflex Yes Yes
== END 2024-04-20 09:45 | disposition home or self-care (01) ==
LOC: ERS 07:08
DX: R19.7 Diarrhea, unspecified (principal); R21 Rash and other nonspecific skin eruption; F17.210 Nicotine dependence, cigarettes, uncomplicated
CPT/HCPCS: 36415; 80053; 81001; 83690; 84703; 85025; 87086; 99282; Q0162

== ENCOUNTER 2024-05-08 22:04 | Emergency (ER) | payer SELFPAY ==
[2024-05-09] MEDS ORDERED: Dexamethasone 10 MG/ML VIAL ONE (00:28)
[2024-05-09] MEDS ORDERED: Ipratropium/Albuterol 3 ML NEB ONE (00:28)
== END 2024-05-09 01:05 | disposition home or self-care (01) ==
LOC: ERS 22:04
DX: J45.901 Unspecified asthma with (acute) exacerbation (principal); F17.210 Nicotine dependence, cigarettes, uncomplicated
CPT/HCPCS: 71045; 87428; 96372; J1100; J7620

== ENCOUNTER 2024-05-14 10:39 | Emergency (ER) | payer SELFPAY ==
[2024-05-14] MEDS ORDERED: Ipratropium/Albuterol 3 ML NEB ONE (12:06)
[2024-05-14 12:40] LABS: BHCG - Serum Negative (NEGATIVE); Pregs Control Background? CLEAR/WHITE (CLR/WHITE); Pregs Control Bar Appear? YES (CONTROL BAR)
[2024-05-14 12:41] LABS: Hematocrit 37.8 % (36.0-47.0); Hemoglobin 12.3 g/dL (12.0-16.0); Mean Corpuscular HGB CONC 32.5 g/dL (32.0-36.0); Mean Corpuscular Hemoglobin 28.6 pg (27.0-31.0); Mean Corpuscular Volume 87.9 fL (78.0-98.0); Mean Platelet Volume 11.2 fL (7.4-10.4); Platelet Count 259 10x3/uL (130-400); RBC Distribution Width 13.5 % (11.5-14.5)
[2024-05-14 13:09] LABS: Band 1 % (5-11); Eosinophils 1 % (0-10); Lymphocytes 55 % (21-51); Monocytes 1 % (0-10); Neutrophil 40 % (42-75); Nucleated RBC (Manual Ct) 1 % (0); Platelet Adequacy Comment Platelets Normal; RBC Morphology Within Normal Limits; Reactive Lymphocytes 2 % (0-10)
[2024-05-14 13:10] LABS: Troponin I Less than 0.010 ng/mL (< 0.028)
[2024-05-14 13:17] LABS: ALT (SGPT) 16 U/L (8-55); AST (SGOT) 13 U/L (5-34); Alkaline Phosphatase 98 U/L (40-110); Anion Gap 9 mmol/L (10-20); BUN (Urea Nitrogen) 12 mg/dL (7.0-18.7); Bilirubin, Total 0.2 mg/dL (0.2-1.2); Calc. Creatinine Clearance 0 mL/min (70-130); Calcium 8.7 mg/dL (7.8-10.44); Carbon Dioxide 26 mmol/L (22-29); Chloride 106 mmol/L (98-107); Estimated GFR 91; Globulin 3.1 g/dL (2.4-3.5); Glucose 83 mg/dL (70-105); Magnesium 2.1 mg/dL (1.6-2.6); Protein, Total 6.1 g/dL (6.0-8.3); Sodium 137 mmol/L (136-145)
[2024-05-14] MEDS ORDERED: Lidocaine 1% PF 5 ML VIAL ONE (14:00)
[2024-05-14] MEDS ORDERED: cefTRIAXone (ROCEPHIN) 1 GM VIAL ONE (14:00)
== END 2024-05-14 13:45 | disposition home or self-care (01) ==
LOC: ERS 10:39
DX: J18.9 Pneumonia, unspecified organism (principal); F17.210 Nicotine dependence, cigarettes, uncomplicated; Z55.6 Problems related to health literacy
CPT/HCPCS: 36415; 71045; 71250; 80053; 83605; 83735; 83880; 84484; 84703; 85025; 93005; 96372; J0696; J7620

== ENCOUNTER 2024-07-08 01:28 | Emergency (ER) | payer SELFPAY | END 2024-07-08 05:34 | disposition home or self-care (01) | LOC: ERS 01:28 | DX: M77.11 Lateral epicondylitis, right elbow (principal); F17.210 Nicotine dependence, cigarettes, uncomplicated ==

== ENCOUNTER 2024-08-25 17:28 | Inpatient (IN) | payer MEDICAID, OTHER, SELFPAY ==
[~2024-08-25 17:28] MED LIST: Iopamidol-370 76% 500 ML MDV (1 ML CHARGE) ONE
[2024-08-25] MEDS ORDERED: Magnesium 2 GM/50 ML BAG (IN WATER) ONE (18:23)
[2024-08-25] MEDS ORDERED: methylPREDNISolone Sod Succ/PF 125 MG/2 ML VIAL ONE (18:23)
[2024-08-25 18:35] LABS: Hematocrit 37.3 % (36.0-47.0); Hemoglobin 12.2 g/dL (12.0-16.0); Mean Corpuscular HGB CONC 32.7 g/dL (32.0-36.0); Mean Corpuscular Hemoglobin 28.8 pg (27.0-31.0); Mean Platelet Volume 11.6 fL (7.4-10.4); Platelet Count 230 10x3/uL (130-400); RBC Distribution Width 13.8 % (11.5-14.5); Red Blood Cell (RBC) Count 4.24 mill/uL (4.20-5.40)
[2024-08-25 18:56] LABS: Eosinophils 4 % (0-10); Lymphocytes 7 % (21-51); Monocytes 4 % (0-10); Neutrophil 85 % (42-75); Platelet Adequacy Comment Platelets Normal; Polychromasia SLIGHT = 2-3 cells HPF (0-2); RBC Morphology Within Normal Limits
[2024-08-25 19:05] LABS: ALT (SGPT) 12 U/L (Less than 34); AST (SGOT) 18 U/L (11-34); Alkaline Phosphatase 80 U/L (40-110); Anion Gap 10 mmol/L (10-20); BUN (Urea Nitrogen) 8 mg/dL (7.0-18.7); Bilirubin, Total 0.3 mg/dL (0.3-1.2); Calc. Creatinine Clearance 0 mL/min (70-130); Calcium 8.7 mg/dL (7.8-10.44); Carbon Dioxide 23 mmol/L (22-29); Chloride 108 mmol/L (98-107); Estimated GFR 77; Globulin 2.9 g/dL (2.4-3.5); Glucose 103 mg/dL (70-105); Magnesium 1.9 mg/dL (1.6-2.6); Potassium 4.2 mmol/L (3.5-5.1); Protein, Total 5.9 g/dL (6.0-8.3); Sodium 137 mmol/L (136-145)
[2024-08-25] MEDS ORDERED: diphenhydrAMINE 50 MG/ML VIAL ONE (20:20)
[2024-08-25] MEDS ORDERED: methylPREDNISolone Sod Succ 40 MG VIAL ONE (20:23)
[2024-08-25] MEDS ORDERED: Famotidine/PF 20 mg/2ml Vial ONE (20:23)
[2024-08-25 21:08] LABS: Actual Bicarbonate (HCO3v) 19.2 mEq/L (22-28); Analyzer IN Cardio ER; Base Excess -5.5 mEq/L (-2.0 to +3.0); Chloride (VBG) 105 mmol/L (98-106); Hematocrit-VBG 40 % (36.0-47.0); Hemoglobin (Hb) 13.6 g/dL (11.7-15.5); Potassium (VBG) 3.62 mmol/L (3.70-5.30); Sodium 137 mmol/L (133-146); pH (venous) 7.356 (7.32-7.43)
[2024-08-25] MEDS ORDERED: Sodium Chloride 0.9% 0 ML ONE (21:27)
[2024-08-25] MEDS ORDERED: cefTRIAXone (ROCEPHIN) 2 GM VIAL ONE (21:28)
[2024-08-25 21:43] LABS: Troponin I Less than 0.010 ng/mL (< 0.028)
[2024-08-25] MEDS ORDERED: Sodium Chloride 0.9% 100 ML ONE (23:08)
[2024-08-25] MEDS ORDERED: Azithromycin 500 MG VIAL ONE (23:08)
[2024-08-25] MEDS ORDERED: Ondansetron PF 4 MG/2 ML Vial IVP PRN (23:49)
[2024-08-26] MEDS: Ipratropium/Albuterol 3 ML NEB ONE (00:17)
[2024-08-26] MEDS: Albuterol 2.5 MG (3 mL) NEB ONE (00:17)
[2024-08-26] MEDS ORDERED: Albuterol 2.5 MG (0.5 mL) NEB ONE (01:13)
[2024-08-26] MEDS ORDERED: Ipratropium/Albuterol 3 ML NEB ONE (01:13)
[2024-08-26] MEDS ORDERED: Albuterol 2.5 MG (3 mL) NEB ONE (01:14)
[2024-08-26] MEDS: Albuterol 2.5 MG (3 mL) NEB NEB PRN (01:25)
[2024-08-26] MEDS: Ipratropium/Albuterol 3 ML NEB NEB SCH (01:26)
[2024-08-26 01:32] VITALS: BMI 52.0
[2024-08-26] MEDS ORDERED: guaiFENesin/Codeine 200 mg/20 mg 10 ml Cup PO PRN (02:29)
[2024-08-26] MEDS ORDERED: Ipratropium/Albuterol 3 ML NEB NEB SCH (02:30)
[2024-08-26] MEDS ORDERED: methylPREDNISolone Sod Succ 40 MG VIAL ONE ×2 (05:23→12:07)
[2024-08-26] MEDS ORDERED: Benzonatate 100 MG CAP ONE (05:23)
[2024-08-26] MEDS: methylPREDNISolone Sod Succ 40 MG VIAL IVP SCH (05:28)
[2024-08-26] MEDS: Benzonatate 100 MG CAP PO PRN (05:34)
[2024-08-26 07:12] LABS: Anion Gap 12 mmol/L (10-20); BUN (Urea Nitrogen) 9 mg/dL (7.0-18.7); Calc. Creatinine Clearance 205 mL/min (70-130); Calcium 8.1 mg/dL (7.8-10.44); Carbon Dioxide 18 mmol/L (22-29); Chloride 110 mmol/L (98-107); Estimated GFR 89; Glucose 163 mg/dL (70-105); Potassium 4.4 mmol/L (3.5-5.1); Sodium 136 mmol/L (136-145)
[2024-08-26 07:55] LABS: Hematocrit 36.7 % (36.0-47.0); Hemoglobin 11.8 g/dL (12.0-16.0); Mean Corpuscular HGB CONC 32.2 g/dL (32.0-36.0); Mean Corpuscular Hemoglobin 28.5 pg (27.0-31.0); Mean Corpuscular Volume 88.6 fL (78.0-98.0); Mean Platelet Volume 12.1 fL (7.4-10.4); Platelet Count 231 10x3/uL (130-400); RBC Distribution Width 14.3 % (11.5-14.5); Red Blood Cell (RBC) Count 4.14 mill/uL (4.20-5.40)
[2024-08-26 08:53] LABS: Burr Cells SLIGHT = 2-5 cells HPF (0-1); Hypochromia SLIGHT = 6-15 cells HPF (0-5); Lymphocytes 1 % (21-51); Monocytes 2 % (0-10); Neutrophil 97 % (42-75); Platelet Adequacy Comment Platelets Normal; Polychromasia SLIGHT = 2-3 cells HPF (0-2)
[2024-08-26] MEDS: Mometasone 200 MCG/Formoterol 5 MCG 120 PUFF INHALER INH SCH (09:27)
[2024-08-26] MEDS ORDERED: guaiFENesin ER 600 MG TAB ONE (10:20)
[2024-08-26] MEDS ORDERED: Enoxaparin 40 MG (0.4 mL) SYRINGE ONE (10:20)
[2024-08-26] MEDS: Enoxaparin 40 MG (0.4 mL) SYRINGE SC SCH (10:30)
[2024-08-26] MEDS: guaiFENesin/DM ER PO SCH (11:05)
[2024-08-26] MEDS ORDERED: ALPRAZolam 0.25 MG TAB ONE (12:07)
[2024-08-26] MEDS: ALPRAZolam 0.25 MG TAB PO PRN (12:23)
[2024-08-26] MEDS: Magnesium 2 GM/50 ML(in water) 2 GM in Premix 1 BAG IVPB SCH (12:30)
[2024-08-26] MEDS: FLU (Fluarix Triv) TS24-25(6MOS UP)/PF 45 MCG/0.5 ML Syringe IM ONE (15:07)
[2024-08-26] MEDS: Acetaminophen 325 MG TAB PO PRN (15:14)
[2024-08-26] MEDS: Montelukast Sodium 10 mg Tablet PO SCH (20:37)
[2024-08-27 05:02] LABS: #Basophils Less than 0.03 10x3/uL (0.0-0.2); #Eosinophils Less than 0.03 10x3/uL (0.0-0.7); %Basophils 0.1 % (0.0-1.0); %Eosinophils 0.1 % (0.0-10.0); %Lymphocytes 10.1 % (21.0-51.0); %Monocytes 2.8 % (0.0-10.0); %Neutrophils 86.5 % (42.0-75.0); Hematocrit 38.6 % (36.0-47.0); Mean Corpuscular HGB CONC 31.1 g/dL (32.0-36.0); Mean Corpuscular Hemoglobin 28.2 pg (27.0-31.0); Mean Corpuscular Volume 90.8 fL (78.0-98.0); Mean Platelet Volume 12.1 fL (7.4-10.4); Platelet Count 226 10x3/uL (130-400); RBC Distribution Width 14.6 % (11.5-14.5); Red Blood Cell (RBC) Count 4.25 mill/uL (4.20-5.40)
[2024-08-27 06:26] LABS: Anion Gap 11 mmol/L (10-20); BUN (Urea Nitrogen) 10 mg/dL (7.0-18.7); Calc. Creatinine Clearance 226 mL/min (70-130); Calcium 8.3 mg/dL (7.8-10.44); Carbon Dioxide 18 mmol/L (22-29); Chloride 113 mmol/L (98-107); Estimated GFR 100; Glucose 195 mg/dL (70-105); Potassium 4.4 mmol/L (3.5-5.1); Sodium 138 mmol/L (136-145)
[2024-08-27 09:02] VITALS: TEMP 97.5
[2024-08-27] MEDS: methylPREDNISolone Sod Succ 40 MG VIAL IVP SCH (09:03)
[2024-08-27 11:44] VITALS: BP 124/71
== END 2024-08-27 15:53 | disposition home or self-care (01) | DRG 189 ==
LOC: ERS 17:28 → ERHOLD 23:46 → OBSVTOIN 08-26 00:12 → 2NO 08-26 14:17
PROVIDERS: ADMIT Internal Medicine; ATTEND Family Medicine
PROC: 5A09357 Assistance with Respiratory Ventilation, Less than 24 Consecutive Hours, Continuous Positive Airway Pressure (ICD-10-PCS; principal; 2024-08-26)
DX: J96.01 Acute respiratory failure with hypoxia (principal); J45.901 Unspecified asthma with (acute) exacerbation; Z68.43 Body mass index [BMI] 50.0-59.9, adult; J20.6 Acute bronchitis due to rhinovirus; E66.01 Morbid (severe) obesity due to excess calories; M54.50 Low back pain, unspecified; G89.29 Other chronic pain; F31.9 Bipolar disorder, unspecified; F17.210 Nicotine dependence, cigarettes, uncomplicated; F41.8 Other specified anxiety disorders; F90.9 Attention-deficit hyperactivity disorder, unspecified type; Z88.8 Allergy status to other drugs, medicaments and biological substances; Z71.3 Dietary counseling and surveillance
CPT/HCPCS: 36415; 71045; 71275; 80048; 80053; 82805; 83605; 83735; 83880; 84145; 84484; 85025; 87086; 87428; 87633; 94640; 94660; J0456; J0696; J1200; J1650; J2919; J3475; J3490; J7611; J7620; Q9967

== ENCOUNTER 2025-04-05 22:33 | Emergency (ER) | payer OTHER ==
[2025-04-05 23:37] LABS: #Basophils 0.03 10x3/uL (0.0-0.2); #Eosinophils 0.39 10x3/uL (0.0-0.7); #Monocytes 0.46 10x3/uL (0.11-0.59); #Neutrophils 4.30 10x3/uL (1.40-6.50); %Basophils 0.5 % (0.0-1.0); %Eosinophils 6.2 % (0.0-10.0); %Lymphocytes 17.7 % (21.0-51.0); %Monocytes 7.3 % (0.0-10.0); %Neutrophils 68.1 % (42.0-75.0); Hematocrit 36.6 % (36.0-47.0); Hemoglobin 11.7 g/dL (12.0-16.0); Mean Corpuscular Hemoglobin 27.6 pg (27.0-31.0); Mean Corpuscular Volume 86.3 fL (78.0-98.0); Platelet Count 201 10x3/uL (130-400); Red Blood Cell (RBC) Count 4.24 mill/uL (4.20-5.40); White Blood Cell (WBC) Count 6.31 10x3/uL (4.8-10.8)
[2025-04-05] MEDS ORDERED: Magnesium 2 GM/50 ML BAG (IN WATER) ONE (23:43)
[2025-04-05] MEDS ORDERED: Dexamethasone 10 MG/ML VIAL ONE (23:43)
[2025-04-05 23:57] LABS: ALT (SGPT) 13 U/L (Less than 34); AST (SGOT) 18 U/L (11-34); Albumin 3.5 g/dL (3.1-4.5); Alkaline Phosphatase 107 U/L (40-110); Anion Gap 13 mmol/L (10-20); BUN (Urea Nitrogen) 8 mg/dL (7.0-18.7); Bilirubin, Total 0.2 mg/dL (0.3-1.2); Calc. Creatinine Clearance 0 mL/min (70-130); Calcium 8.8 mg/dL (7.8-10.44); Carbon Dioxide 19 mmol/L (22-29); Chloride 107 mmol/L (98-107); Globulin 3.1 g/dL (2.4-3.5); Glucose 209 mg/dL (70-105); Magnesium 1.7 mg/dL (1.6-2.6); Potassium 3.8 mmol/L (3.5-5.1); Sodium 135 mmol/L (136-145)
== END 2025-04-06 01:13 | disposition home or self-care (01) ==
LOC: ERS 22:33
DX: J45.901 Unspecified asthma with (acute) exacerbation (principal); Z87.891 Personal history of nicotine dependence; Z79.899 Other long term (current) drug therapy
CPT/HCPCS: 36415; 71045; 80053; 83735; 83880; 84484; 84702; 85025; 85379; 87428; 93005; 96365; 96375; J1100; J3475; J7620

== ENCOUNTER 2025-05-16 21:01 | Emergency (ER) | payer OTHER ==
[2025-05-16] MEDS ORDERED: diphenhydrAMINE 25 MG CAP ONE (21:33)
[2025-05-16] MEDS ORDERED: predniSONE 20 MG TAB ONE (21:34)
[2025-05-16] MEDS ORDERED: Famotidine 20 MG TAB ONE (21:36)
== END 2025-05-16 21:55 | disposition home or self-care (01) ==
LOC: ERS 21:01
DX: L50.9 Urticaria, unspecified (principal); Z87.891 Personal history of nicotine dependence
CPT/HCPCS: 99282; J7512

== ENCOUNTER 2025-06-17 12:57 | Emergency (ER) | payer OTHER ==
[2025-06-17] MEDS ORDERED: Albuterol 2.5 MG (3 mL) NEB ONE ×2 (13:46→14:44)
[2025-06-17] MEDS ORDERED: Ipratropium Bromide 2.5 ml Neb ONE ×2 (13:46→14:44)
[2025-06-17] MEDS ORDERED: Dexamethasone 10 MG/ML VIAL ONE (13:46)
== END 2025-06-17 16:06 | disposition home or self-care (01) ==
LOC: ERS 12:57
DX: J45.901 Unspecified asthma with (acute) exacerbation (principal); E66.9 Obesity, unspecified; F17.210 Nicotine dependence, cigarettes, uncomplicated; Z79.51 Long term (current) use of inhaled steroids
CPT/HCPCS: 71045; 93005; J1100; J7611; J7644

== ENCOUNTER 2025-07-24 03:49 | Inpatient (IN) | payer OTHER ==
[2025-07-24] MEDS ORDERED: predniSONE 20 MG TAB ONE (04:06)
[2025-07-24] MEDS ORDERED: Ketorolac Tromethamine 30 MG (1 mL) VIAL ONE (04:06)
[2025-07-24] MEDS ORDERED: Albuterol 2.5 MG (3 mL) NEB ONE (04:53)
[2025-07-24] MEDS ORDERED: Magnesium 2 GM/50 ML BAG (IN WATER) ONE (04:53)
[2025-07-24 05:15] LABS: #Basophils 0.04 10x3/uL (0.0-0.2); #Eosinophils 0.17 10x3/uL (0.0-0.7); #Monocytes 0.58 10x3/uL (0.11-0.59); #Neutrophils 5.21 10x3/uL (1.40-6.50); %Basophils 0.6 % (0.0-1.0); %Eosinophils 2.4 % (0.0-10.0); %Lymphocytes 16.6 % (21.0-51.0); %Monocytes 8.0 % (0.0-10.0); %Neutrophils 72.1 % (42.0-75.0); Hematocrit 38.2 % (36.0-47.0); Hemoglobin 12.1 g/dL (12.0-16.0); Mean Corpuscular Hemoglobin 27.1 pg (27.0-31.0); Mean Corpuscular Volume 85.7 fL (78.0-98.0); Platelet Count 222 10x3/uL (130-400); Red Blood Cell (RBC) Count 4.46 mill/uL (4.20-5.40); White Blood Cell (WBC) Count 7.22 10x3/uL (4.8-10.8)
[2025-07-24 05:28] LABS: BHCG - Serum Negative (NEGATIVE); Pregs Control Background? CLEAR/WHITE (CLR/WHITE); Pregs Control Bar Appear? YES (CONTROL BAR)
[2025-07-24 05:34] LABS: ALT (SGPT) 13 U/L (Less than 34); AST (SGOT) 14 U/L (11-34); Albumin 3.0 g/dL (3.1-4.5); Alkaline Phosphatase 69 U/L (40-110); Anion Gap 13 mmol/L (10-20); BUN (Urea Nitrogen) 8 mg/dL (7.0-18.7); Bilirubin, Total 0.3 mg/dL (0.3-1.2); Calc. Creatinine Clearance 0 mL/min (70-130); Calcium 8.4 mg/dL (7.8-10.44); Carbon Dioxide 22 mmol/L (22-29); Chloride 105 mmol/L (98-107); Globulin 2.2 g/dL (2.4-3.5); Glucose 143 mg/dL (70-105); Lipase 27 U/L (8-78); Magnesium 1.8 mg/dL (1.6-2.6); Potassium 4.3 mmol/L (3.5-5.1); Sodium 136 mmol/L (136-145)
[2025-07-24 06:57] LABS: Actual Bicarbonate (HCO3v) 18.9 mEq/L (22-28); Analyzer IN Cardio ER; Base Excess -4.0 mEq/L (-2.0 to +3.0); Calcium, Ionized (venous) 1.09 mmol/L (1.16-1.32); Chloride (VBG) 105 mmol/L (98-106); Hematocrit-VBG 40 % (36.0-47.0); Hemoglobin (Hb) 13.5 g/dL (11.7-15.5); Potassium (VBG) 4.04 mmol/L (3.70-5.30); Sodium 135 mmol/L (133-146)
[2025-07-24] MEDS ORDERED: Ondansetron PF 4 MG/2 ML Vial IVP PRN (09:05)
[2025-07-24] MEDS ORDERED: Senokot S 8.6-50 MG TAB PO PRN (09:05)
[2025-07-24] MEDS ORDERED: Calcium Carbonate 500 MG ChewTAB PO PRN (09:05)
[2025-07-24] MEDS: Guaifenesin DM 100-10/5 ML UDCUP PO PRN ×2 (11:43→16:09)
[2025-07-24] MEDS: Acetaminophen 325 MG TAB PO PRN (17:30)
[2025-07-24 17:32] LABS: Anion Gap 15 mmol/L (10-20); BUN (Urea Nitrogen) 8 mg/dL (7.0-18.7); Calc. Creatinine Clearance 24 mL/min (70-130); Calcium 8.5 mg/dL (7.8-10.44); Carbon Dioxide 17 mmol/L (22-29); Chloride 107 mmol/L (98-107); Glucose 162 mg/dL (70-105); Potassium 4.4 mmol/L (3.5-5.1); Sodium 135 mmol/L (136-145)
[2025-07-24] MEDS: cefTRIAXone\\ROCEPHIN 1 GM in Sodium Chloride 0.9% 100 ML IVPB SCH (17:46)
[2025-07-24] MEDS: Famotidine 20 MG TAB PO SCH (20:30)
[2025-07-24] MEDS: Enoxaparin 40 MG (0.4 mL) SYRINGE SC SCH (20:30)
[2025-07-24] MEDS: FLU (Fluarix Triv) 25-26 (6MOS UP)/PF 45 MCG/0.5 ML Syringe IM ONE (22:34)
[2025-07-24] MEDS: PNEUMOC 20-VAL CONJ-DIP CRM/PF 0.5 ML SYRINGE IM ONE (22:34)
[2025-07-25 04:10] LABS: #Basophils Less than 0.03 10x3/uL (0.0-0.2); #Eosinophils Less than 0.03 10x3/uL (0.0-0.7); #Monocytes 0.57 10x3/uL (0.11-0.59); #Neutrophils 11.29 10x3/uL (1.40-6.50); %Basophils 0.2 % (0.0-1.0); %Eosinophils 0.0 % (0.0-10.0); %Lymphocytes 7.0 % (21.0-51.0); %Monocytes 4.4 % (0.0-10.0); %Neutrophils 87.9 % (42.0-75.0); Hematocrit 37.7 % (36.0-47.0); Hemoglobin 11.7 g/dL (12.0-16.0); Mean Corpuscular Hemoglobin 27.5 pg (27.0-31.0); Mean Corpuscular Volume 88.5 fL (78.0-98.0); Platelet Count 216 10x3/uL (130-400); Red Blood Cell (RBC) Count 4.26 mill/uL (4.20-5.40); White Blood Cell (WBC) Count 12.85 10x3/uL (4.8-10.8)
[2025-07-25 04:27] LABS: Anion Gap 14 mmol/L (10-20); BUN (Urea Nitrogen) 8 mg/dL (7.0-18.7); Calc. Creatinine Clearance 21 mL/min (70-130); Calcium 8.7 mg/dL (7.8-10.44); Carbon Dioxide 19 mmol/L (22-29); Chloride 106 mmol/L (98-107); Glucose 190 mg/dL (70-105); Magnesium 2.1 mg/dL (1.6-2.6); Potassium 4.0 mmol/L (3.5-5.1); Sodium 135 mmol/L (136-145)
[2025-07-25 08:02] LABS: Actual Bicarbonate (HCO3a) 19.5 mEq/L (22-28); Base Excess (BEa) -3.8 mEq/L (-2.0 to +3.0); CO2 Tension 30.4 mmHg (35.0-45.0); Calcium, Ionized (arterial) 1.16 mmol/L (1.12-1.30); Hematocrit-ABG 37 % (36.0-47.0); Hemoglobin (Hb) 12.6 g/dL (12.0-16.0); Potassium - ABG Lab 4.27 mmol/L (3.70-5.30); pH, Arterial 7.425 (7.35-7.45)
[2025-07-25 08:05] LABS: O2 Tension (PaO2), arterial 57.4 mmHg (80.0-100.0)
[2025-07-25] MEDS: Enoxaparin 60 MG (0.6 mL) SYRINGE SC SCH (08:09)
[2025-07-25] MEDS: Pantoprazole 40 MG DR.TAB PO SCH (08:10)
[2025-07-25] MEDS: Magnesium 2 GM/50 ML(in water) 2 GM in Premix 1 BAG IVPB SCH (12:18)
[2025-07-26 06:21] LABS: Anion Gap 17 mmol/L (10-20); BUN (Urea Nitrogen) 10 mg/dL (7.0-18.7); Calc. Creatinine Clearance 200 mL/min (70-130); Calcium 8.7 mg/dL (7.8-10.44); Carbon Dioxide 17 mmol/L (22-29); Chloride 107 mmol/L (98-107); Glucose 135 mg/dL (70-105); Potassium 5.7 mmol/L (3.5-5.1); Sodium 135 mmol/L (136-145)
[2025-07-26 06:59] LABS: #Basophils Less than 0.03 10x3/uL (0.0-0.2); #Eosinophils Less than 0.03 10x3/uL (0.0-0.7); #Monocytes 0.87 10x3/uL (0.11-0.59); #Neutrophils 12.07 10x3/uL (1.40-6.50); %Basophils 0.1 % (0.0-1.0); %Eosinophils 0.0 % (0.0-10.0); %Lymphocytes 9.7 % (21.0-51.0); %Monocytes 6.0 % (0.0-10.0); %Neutrophils 83.9 % (42.0-75.0); Hematocrit 36.8 % (36.0-47.0); Hemoglobin 11.4 g/dL (12.0-16.0); Mean Corpuscular Hemoglobin 27.4 pg (27.0-31.0); Mean Corpuscular Volume 88.5 fL (78.0-98.0); Platelet Count 209 10x3/uL (130-400); Red Blood Cell (RBC) Count 4.16 mill/uL (4.20-5.40); White Blood Cell (WBC) Count 14.40 10x3/uL (4.8-10.8)
[2025-07-26] MEDS: Rosuvastatin 20 MG TAB PO SCH (08:50)
[2025-07-26 09:39] LABS: Actual Bicarbonate (HCO3v) 26.7 mEq/L (22-28); Base Excess 1.1 mEq/L (-2.0 to +3.0); Calcium, Ionized (venous) 1.13 mmol/L (1.16-1.32); Chloride (VBG) 102 mmol/L (98-106); Hematocrit-VBG 39 % (36.0-47.0); Hemoglobin (Hb) 13.1 g/dL (11.7-15.5); Potassium (VBG) 5.00 mmol/L (3.70-5.30); Sodium 134 mmol/L (133-146)
[2025-07-26] MEDS: Sodium Bicarbonate Tab 325 MG TAB PO SCH ×2 (10:02→14:36)
[2025-07-26] MEDS: LOKELMA 10 GM PACKET PO SCH (10:02)
[2025-07-26 15:46] LABS: Potassium 4.6 mmol/L (3.5-5.1)
[2025-07-27 07:16] LABS: Anion Gap 14 mmol/L (10-20); BUN (Urea Nitrogen) 12 mg/dL (7.0-18.7); Calc. Creatinine Clearance 215 mL/min (70-130); Calcium 8.6 mg/dL (7.8-10.44); Carbon Dioxide 25 mmol/L (22-29); Chloride 102 mmol/L (98-107); Glucose 138 mg/dL (70-105); Potassium 4.6 mmol/L (3.5-5.1); Sodium 136 mmol/L (136-145)
[2025-07-27] MEDS: predniSONE 20 MG TAB PO SCH (16:51)
[2025-07-28] MEDS: Benzonatate 100 MG CAP PO PRN (12:54)
[2025-07-29 10:39] VITALS: BP 137/86; TEMP 97.7
== END 2025-07-29 14:55 | disposition home or self-care (01) | DRG 189 ==
LOC: ERS 03:49 → T4-A 06:17 → IMCU/EMU 19:03 → T4-A 07-25 13:56
PROVIDERS: ADMIT Internal Medicine; ATTEND Internal Medicine
PROC: 5A09357 Assistance with Respiratory Ventilation, Less than 24 Consecutive Hours, Continuous Positive Airway Pressure (ICD-10-PCS; principal; 2025-07-24)
PROC: 3E03329 Introduction of Other Anti-infective into Peripheral Vein, Percutaneous Approach (ICD-10-PCS; 2025-07-28)
PROC: 4A033R1 Measurement of Arterial Saturation, Peripheral, Percutaneous Approach (ICD-10-PCS; 2025-07-28)
DX: J96.01 Acute respiratory failure with hypoxia (principal); J45.901 Unspecified asthma with (acute) exacerbation; E87.20 Acidosis, unspecified; Z68.43 Body mass index [BMI] 50.0-59.9, adult; E87.1 Hypo-osmolality and hyponatremia; M54.9 Dorsalgia, unspecified; E87.5 Hyperkalemia; G89.29 Other chronic pain; E66.01 Morbid (severe) obesity due to excess calories; F17.200 Nicotine dependence, unspecified, uncomplicated; E78.5 Hyperlipidemia, unspecified; Z71.6 Tobacco abuse counseling; Z71.3 Dietary counseling and surveillance; F41.9 Anxiety disorder, unspecified; F32.A Depression, unspecified; F90.9 Attention-deficit hyperactivity disorder, unspecified type
CPT/HCPCS: 36415; 71045; 80048; 80053; 82805; 83605; 83690; 83735; 84484; 84703; 85025; 87040; 87428; 93005; 94660; 96372; 96374; J0696; J1650; J1885; J2919; J3475; J7120; J7512; J7611; J7626